=== PATIENT | male | born 1965 | race Caucasian/White ===

== ENCOUNTER 2016-12-27 15:41 | Outpatient (CLI) | payer BC | END 2016-12-27 15:42 | LOC: LAB 15:41 | PROVIDERS: ATTEND Family Medicine | DX: Z12.5 Encounter for screening for malignant neoplasm of prostate (principal) | CPT/HCPCS: 36415; G0103 ==

== ENCOUNTER 2018-05-06 14:27 | Outpatient (CLI) | payer BC ==
[2018-05-06 15:49] LABS: eGFR (African) > 60; eGFR (Non-African) > 60
== END 2018-05-06 14:30 ==
LOC: LAB 14:27
PROVIDERS: ATTEND Family Medicine
DX: Z00.00 Encounter for general adult medical examination without abnormal findings (principal)
CPT/HCPCS: 36415; 80053; 80061

== ENCOUNTER 2018-06-24 14:40 | Outpatient (CLI) | payer BC | END 2018-06-24 14:42 | LOC: LAB 14:40 | PROVIDERS: ATTEND Family Medicine | DX: G44.021 Chronic cluster headache, intractable (principal) | CPT/HCPCS: 84443 ==

== ENCOUNTER 2019-06-11 15:11 | Outpatient (CLI) | payer BC ==
[2019-06-23 07:53] LABS: HDL 24 mg/dL (>40); eGFR (Non-African) 56
== END 2019-06-11 15:25 ==
LOC: LAB 15:11
PROVIDERS: ATTEND Family Medicine
DX: Z13.220 Encounter for screening for lipoid disorders (principal)
CPT/HCPCS: 36415; 80053; 80061